=== PATIENT | male | born 1960 ===

== ENCOUNTER 2020-12-29 05:59 | Day surgery (SDC) | payer OTHER ==
[~2020-12-29 05:59] MED LIST: AVAPRO300 MG PO
[2020-12-29] MEDS ORDERED: DUI500 PO (11:16)
[2020-12-29] MEDS ORDERED: PERCOCET 5-3251 EACH PO (11:16)
[2020-12-29] MEDS ORDERED: ALEVE220 M1 PO (11:16)
== END 2020-12-29 13:39 | disposition home or self-care (01) ==
LOC: CIR.AMB 05:59
PROVIDERS: ATTEND Orthopaedic Surgery
DX: S46.011A Strain of muscle(s) and tendon(s) of the rotator cuff of right shoulder, initial encounter (principal); Z20.822 Contact with and (suspected) exposure to COVID-19